=== PATIENT | male | born 1955 | race Caucasian/White ===

== ENCOUNTER 2022-04-01 13:39 | Inpatient (IN) ==
[2022-04-01] MEDS ORDERED: Etomidate 20 mg/10 ml 2 MG/ML 10 ml VIAL IV ONE (13:47)
[2022-04-01] MEDS ORDERED: Succinylcholine 200 mg VIAL 20 mg/ml 10 ml VIAL (200 mg) IV ONE (13:47)
[2022-04-01 13:53] LABS: Hematocrit 47 % (42-52); Hemoglobin 15.1 g/dL (14.0-18.0); Mean Corpuscular HGB Conc 33 g/dL (31-36); Mean Corpuscular Hemoglobin 32 pg (27-31); Mean Corpuscular Volume 98 fL (80-94); Mean Platelet Volume 8.7 fL (7.4-10.4); Platelet Count 201 10^3/uL (150-450); Red Blood Count 4.74 10^6 /uL (4.18-5.48); Red Cell Distribution Width 14 % (10-15)
[2022-04-01] MEDS: Propofol 10 mg/ml 100 ML BTL 100 ML IV SCH ×4 (13:54→22:54)
[2022-04-01 13:59] LABS: INR 1.04 (0.89-1.11)
[2022-04-01 14:11] LABS: PCO2 Arterial 64 mmHg (35-45); PO2 Arterial 74 mmHg (80-100)
[2022-04-01 14:20] LABS: High Sens Troponin Baseline 44 pg/mL (<20)
[2022-04-01] MEDS ORDERED: Iodixanol (CONTRAST) 320 MG/ML 100 ML SDV IV ONE (14:35)
[2022-04-01 14:37] LABS: ALT 288 U/L (7-52); Albumin 4.2 g/dL (3.2-5.2); Albumin/Globulin Ratio 1.7 (1-3); Alkaline Phosphatase 77 U/L (35-149); Blood Urea Nitrogen 16 mg/dL (6-24); CO2 Carbon Dioxide 21 mmol/L (22-32); Calcium 9.8 mg/dL (8.6-10.3); Chloride 102 mmol/L (101-111); Creatine Kinase 355 U/L (10-223); Globulin 2.5 g/dL (2-4); Glucose 241 mg/dL (70-100); Magnesium 2.2 mg/dL (1.9-2.7); Sodium 137 mmol/L (135-145); Total Protein 6.7 g/dL (6.4-8.9); eGFR CKD-EPI 79.6 (>60)
[2022-04-01 14:40] LABS: Anion Gap 14 mmol/L (2-11)
[2022-04-01] MEDS ORDERED: Lactated Ringers 1000 ml BAG 1,000 ML IV ONE ×3 (14:43→15:26)
[2022-04-01 14:48] LABS: TSH Ultra Thyroid Stim Horm 7.68 mcIU/mL (0.34-5.60)
[2022-04-01] MEDS ORDERED: Midazolam 5 mg/5 ml VIAL 1 mg/ml 5 ml VIAL (5 mg) IV SLOW PU ONE (14:55)
[2022-04-01] MEDS ORDERED: Midazolam 5 mg/5 ml VIAL 1 mg/ml 5 ml VIAL (5 mg) ONE ×2 (14:56→17:34)
[2022-04-01] MEDS ORDERED: fentaNYL INFUSION 50 mcg/mL VL 2,500 MCG/50 ML VIAL IV SCH ×2 (15:00→19:00)
[2022-04-01 15:07] LABS: ABS Basophils 0.1 10^3/ul (0-0.2); ABS Eosinophils 0.4 10^3/ul (0-0.6); ABS Lymphocytes 5.9 10^3/ul (1.0-4.8); ABS Monocytes 0.5 10^3/ul (0-0.8); Eosinophil % 3.4 %; Lymphocyte % 45.5 %; Nucleated Red Blood Cells % 0.2
[2022-04-01] MEDS ORDERED: cefTRIAXone 2 gm/50 mL D5W 2 GM/50 ML BAG IV ONE (15:14)
[2022-04-01] MEDS ORDERED: Azithromycin 500 mg/250 ml NS 500 MG/250 ML BAG IVPB ONE (15:15)
[2022-04-01] MEDS ORDERED: Norepinephrine 16MCG/ML BAG NS 4,000 MCG/250 ML BAG IV ONE (15:28)
[2022-04-01] MEDS ORDERED: Norepinephrine 16MCG/ML BAG NS 4,000 MCG/250 ML BAG IV SCH (16:00)
[2022-04-01] MEDS ORDERED: fentaNYL 100 mcg/2 ml 50 MCG/ML VIAL IV SLOW PU PRN ×2 (16:16→17:36)
[2022-04-01 16:17] LABS: High Sensitivity Troponin 1 Hr 660 pg/mL (<20)
[2022-04-01] MEDS ORDERED: fentaNYL 100 mcg/2 ml 50 MCG/ML VIAL ONE ×3 (16:19→17:34)
[2022-04-01] MEDS ORDERED: Rocuronium 50 mg VIAL 10 mg/ml 5 ml VIAL (50 mg) ONE (16:58)
[2022-04-01] MEDS ORDERED: Propofol 10 mg/ml 100 ML BTL 0 ML ONE (16:58)
[2022-04-01] MEDS ORDERED: Iohexol 350 (CONTRAST) 100 ML PAK IV ONE (17:34)
[2022-04-01] MEDS ORDERED: nitroGLYCERIN DRIP 25,000 MCG/250 ML BTL ONE (17:34)
[2022-04-01] MEDS ORDERED: Lidocaine 1% MPF 5 ML VIAL ONE (17:34)
[2022-04-01] MEDS ORDERED: Heparin 1,000 UNIT/ML 10 ml (10,000 UNITS) CATHLAB/DIALYSIS ONE (17:34)
[2022-04-01] MEDS ORDERED: Heparin 2 UNITS/ML 1000 mls 2,000 ML IV ONE (17:34)
[2022-04-01] MEDS ORDERED: niCARdipine 0.1MG/ML IVPREMIX 20 MG/200 ML BAG IV ONE (17:35)
[2022-04-01] MEDS ORDERED: Norepinephrine 16MCG/ML BAGD5W 4,000 MCG/250 ML BAG IV ONE (17:54)
[2022-04-01] MEDS ORDERED: Midazolam 2 mg/2 ml VIAL 1 mg/ml 2 ml VIAL (2 mg) ONE (18:20)
[2022-04-01 18:22] LABS: Body Fluid Source Broncheoalveolar lav
[2022-04-01] MEDS: fentaNYL 100 mcg/2 ml 50 MCG/ML VIAL IV SLOW PU ONE (18:25)
[2022-04-01] MEDS ORDERED: Midazolam 2 mg/2 ml VIAL 1 mg/ml 2 ml VIAL (2 mg) IV SLOW PU ONE (18:28)
[2022-04-01 18:40] LABS: Potassium Redraw 3.3 mmol/L (3.5-5.0)
[2022-04-01 18:43] LABS: Blood Urea Nitrogen 20 mg/dL (6-24); CO2 Carbon Dioxide 22 mmol/L (22-32); Calcium 9.3 mg/dL (8.6-10.3); Chloride 105 mmol/L (101-111); Glucose 154 mg/dL (70-100); Sodium 138 mmol/L (135-145); eGFR CKD-EPI 81.5 (>60)
[2022-04-01 18:49] LABS: Anion Gap 11 mmol/L (2-11)
[2022-04-01] MEDS ORDERED: fentaNYL 100 mcg/2 ml 50 MCG/ML VIAL IV SLOW PU ONE (20:10)
[2022-04-01] MEDS: NS 0.9% 1000 ml BAG 1,000 ML IV SCH (20:32)
[2022-04-01 20:38] LABS: Body Fluid Appearance Bloody; Body Fluid Color Red
[2022-04-01 22:04] LABS: PCO2 Arterial 56 mmHg (35-45); PO2 Arterial 125 mmHg (80-100)
[2022-04-01] MEDS: Mometasone/Formoter 200/5 MDI INH SCH (22:04)
[2022-04-01] MEDS: Chlorhexidine MOUTHWASH 0.12% 15 ML UDC TOPICAL SCH ×2 (22:33→23:07)
[2022-04-01] MEDS: Enoxaparin 40 MG/0.4 ML SYR SUBCUT SCH (22:39)
[2022-04-01] MEDS: Pantoprazole VIAL 40 MG VIAL IV SCH (22:40)
[2022-04-01 22:43] LABS: Urine Benzodiazepine Screen Presumptive Positive (None Detect); Urine Cannabinoids Screen None Detected (None Detect); Urine Opiates Screen None Detected (None Detect)
[2022-04-01] MEDS ORDERED: Acetaminophen IV 1 GM/100ML 1,000 MG/100 ML BAG IV ONE (22:53)
[2022-04-01] MEDS: Acetaminophen IV 1 GM/100ML 1,000 MG/100 ML BAG IV PRN (22:56)
[2022-04-01 23:21] LABS: Urine Appearance Clear; Urine Bilirubin Negative (Negative); Urine Blood Negative (Negative); Urine Color Yellow; Urine Glucose Negative (Negative); Urine Ketones Negative (Negative); Urine Nitrite Negative (Negative); Urine Protein 1+(30 mg/dL) (Negative); Urine Urobilinogen Negative (Negative)
[2022-04-01 23:24] LABS: Urine Specific Gravity > 1.060 (1.002-1.030)
[2022-04-01] MEDS: KCL 20 MEQ/100 ML IVPREMIX 20 MEQ/100 ML BAG IV SCH (23:59)
[2022-04-02 00:03] LABS: Urine Squamous Epithelial Cell Present (Absent)
[2022-04-02] MEDS: Norepinephrine 16MCG/ML BAGD5W 4,000 MCG/250 ML BAG IV SCH ×3 (00:04→11:57)
[2022-04-02] MEDS: Chlorhexidine MOUTHWASH 0.12% 15 ML UDC TOPICAL SCH ×6 (01:16→22:50)
[2022-04-02] MEDS: Propofol 10 mg/ml 100 ML BTL 100 ML IV SCH ×7 (01:19→21:44)
[2022-04-02] MEDS ORDERED: LORazepam 2 mg VIAL 1 ml IV PUSH ONE (01:26)
[2022-04-02] MEDS ORDERED: Lorazepam PYXIS KEY PRN (01:26)
[2022-04-02] MEDS: KCL 20 MEQ/100 ML IVPREMIX 20 MEQ/100 ML BAG IV SCH (02:27)
[2022-04-02 04:06] LABS: Body Fluid Other Cells 178; Body Fluid Total Cells Counted 300
[2022-04-02 06:04] LABS: Hematocrit 40 % (42-52); Hemoglobin 12.8 g/dL (14.0-18.0); Mean Corpuscular HGB Conc 32 g/dL (31-36); Mean Corpuscular Hemoglobin 31 pg (27-31); Mean Corpuscular Volume 97 fL (80-94); Mean Platelet Volume 8.5 fL (7.4-10.4); Platelet Count 183 10^3/uL (150-450); Red Cell Distribution Width 14 % (10-15); White Blood Count 19.2 10^3/uL (3.5-10.8)
[2022-04-02 06:42] LABS: ABS Lymphocytes 1.1 10^3/ul (1.0-4.8); ABS Monocytes 1.8 10^3/ul (0-0.8); ABS Neutrophils 16.2 10^3/ul (1.5-7.7); Eosinophil % 0.1 %; Lymphocyte % 5.9 %
[2022-04-02 06:45] LABS: Calcium 8.3 mg/dL (8.6-10.3); Magnesium 1.7 mg/dL (1.9-2.7); Phosphorus 3.9 mg/dL (2.5-5.0); Potassium 4.4 mmol/L (3.5-5.0); eGFR CKD-EPI 98.9 (>60)
[2022-04-02] MEDS: NS 0.9% 1000 ml BAG 1,000 ML IV SCH ×2 (07:09→20:35)
[2022-04-02] MEDS: Pantoprazole VIAL 40 MG VIAL IV SCH (07:09)
[2022-04-02] MEDS ORDERED: Magnesium Sulfate 2 gm BAG 2 GM/50 ML BAG IVPB ONE (08:00)
[2022-04-02] MEDS: Mometasone/Formoter 200/5 MDI INH SCH ×2 (08:29→19:02)
[2022-04-02 08:36] LABS: PCO2 Arterial 37 mmHg (35-45); PO2 Arterial 127 mmHg (80-100)
[2022-04-02 08:38] LABS: Albumin 3.6 g/dL (3.2-5.2); Albumin/Globulin Ratio 1.7 (1-3); Direct Bilirubin 0.1 mg/dL (0.03-0.18); Globulin 2.1 g/dL (2-4); Indirect Bilirubin 0.4 mg/dL (0.3-1.0); Total Bilirubin 0.5 mg/dL (0.2-1.0); Total Protein 5.7 g/dL (6.4-8.9)
[2022-04-02 08:43] LABS: INR 1.23 (0.89-1.11)
[2022-04-02 10:23] LABS: Erythrocyte Sed Rate 8 mm/Hr (0-19)
[2022-04-02] MEDS: Doxycycline 100 MG in NS 0.9% 250 ML BAG IVPB SCH ×2 (11:56→22:50)
[2022-04-02] MEDS: Acetaminophen IV 1 GM/100ML 1,000 MG/100 ML BAG IV PRN (12:07)
[2022-04-02] MEDS: cefTRIAXone 1 gm/50 mL D5W 1 GM/50 ML BAG IV SCH (14:12)
[2022-04-02] MEDS ORDERED: Azithromycin 500 mg/250 ml NS 500 MG/250 ML BAG IVPB SCH (15:00)
[2022-04-02] MEDS: Enoxaparin 40 MG/0.4 ML SYR SUBCUT SCH (17:37)
[2022-04-02 18:57] LABS: HDL Cholesterol 30.6 mg/dL
[2022-04-03] MEDS: Propofol 10 mg/ml 100 ML BTL 100 ML IV SCH ×6 (00:40→17:44)
[2022-04-03] MEDS: Chlorhexidine MOUTHWASH 0.12% 15 ML UDC TOPICAL SCH ×7 (00:40→19:59)
[2022-04-03 06:25] LABS: INR 1.35 (0.89-1.11)
[2022-04-03] MEDS: Mometasone/Formoter 200/5 MDI INH SCH ×2 (06:42→19:48)
[2022-04-03 06:43] LABS: Albumin/Globulin Ratio 1.5 (1-3); Calcium 8.1 mg/dL (8.6-10.3); Magnesium 2.1 mg/dL (1.9-2.7); Phosphorus 2.1 mg/dL (2.5-5.0); Potassium 3.7 mmol/L (3.5-5.0); Total Bilirubin 0.5 mg/dL (0.2-1.0); eGFR CKD-EPI 109.8 (>60)
[2022-04-03] MEDS: NS 0.9% 1000 ml BAG 1,000 ML IV SCH ×2 (09:19→23:11)
[2022-04-03] MEDS: Pantoprazole VIAL 40 MG VIAL IV SCH (09:45)
[2022-04-03] MEDS: Doxycycline 100 MG in NS 0.9% 250 ML BAG IVPB SCH ×2 (09:45→19:59)
[2022-04-03 10:24] LABS: ABS Basophils 0.1 10^3/ul (0-0.2); ABS Eosinophils 0.1 10^3/ul (0-0.6); ABS Lymphocytes 1.3 10^3/ul (1.0-4.8); ABS Neutrophils 9.5 10^3/ul (1.5-7.7); Eosinophil % 0.6 %; Hematocrit 33 % (42-52); Hemoglobin 10.7 g/dL (14.0-18.0); Mean Corpuscular HGB Conc 33 g/dL (31-36); Mean Corpuscular Hemoglobin 32 pg (27-31); Mean Corpuscular Volume 96 fL (80-94); Mean Platelet Volume 8.9 fL (7.4-10.4); Platelet Count 142 10^3/uL (150-450); Red Blood Count 3.39 10^6 /uL (4.18-5.48); Red Cell Distribution Width 14 % (10-15)
[2022-04-03] MEDS: KCL 20 MEQ/100 ML IVPREMIX 20 MEQ/100 ML BAG IV SCH ×2 (11:24→14:23)
[2022-04-03] MEDS ORDERED: fentaNYL 100 mcg/2 ml 50 MCG/ML VIAL ONE ×2 (12:01→16:22)
[2022-04-03] MEDS ORDERED: fentaNYL 100 mcg/2 ml 50 MCG/ML VIAL IV SLOW PU ONE (12:01)
[2022-04-03] MEDS: Dexmedetomidine 1,000 MCG in NS 0.9% 250 ml 240 ML IV SCH (12:50)
[2022-04-03] MEDS: Norepinephrine 16MCG/ML BAGD5W 4,000 MCG/250 ML BAG IV SCH (14:04)
[2022-04-03] MEDS: cefTRIAXone 1 gm/50 mL D5W 1 GM/50 ML BAG IV SCH (14:45)
[2022-04-03] MEDS: Enoxaparin 40 MG/0.4 ML SYR SUBCUT SCH (15:49)
[2022-04-03] MEDS: fentaNYL 100 mcg/2 ml 50 MCG/ML VIAL IV SLOW PU PRN (16:26)
[2022-04-04] MEDS: Chlorhexidine MOUTHWASH 0.12% 15 ML UDC TOPICAL SCH ×5 (02:18→15:43)
[2022-04-04] MEDS: Dexmedetomidine 1,000 MCG in NS 0.9% 250 ml 240 ML IV SCH (03:33)
[2022-04-04] MEDS: Propofol 10 mg/ml 100 ML BTL 100 ML IV SCH (04:42)
[2022-04-04 04:43] LABS: ABS Eosinophils 0.1 10^3/ul (0-0.6); ABS Lymphocytes 1.4 10^3/ul (1.0-4.8); ABS Monocytes 0.8 10^3/ul (0-0.8); ABS Neutrophils 7.2 10^3/ul (1.5-7.7); Eosinophil % 1.3 %; Hematocrit 31 % (42-52); Lymphocyte % 14.4 %; Mean Corpuscular HGB Conc 32 g/dL (31-36); Mean Corpuscular Hemoglobin 31 pg (27-31); Mean Corpuscular Volume 96 fL (80-94); Mean Platelet Volume 8.8 fL (7.4-10.4); PCO2 Arterial 34 mmHg (35-45); PO2 Arterial 88 mmHg (80-100); Platelet Count 132 10^3/uL (150-450); Red Blood Count 3.21 10^6 /uL (4.18-5.48); Red Cell Distribution Width 14 % (10-15); White Blood Count 9.6 10^3/uL (3.5-10.8)
[2022-04-04] MEDS: fentaNYL 100 mcg/2 ml 50 MCG/ML VIAL IV SLOW PU PRN (05:05)
[2022-04-04 05:08] LABS: C Reactive Protein 195.68 mg/L (<8.01); Calcium 8.2 mg/dL (8.6-10.3); Magnesium 2.1 mg/dL (1.9-2.7); Potassium 4.2 mmol/L (3.5-5.0); eGFR CKD-EPI 106.3 (>60)
[2022-04-04] MEDS: Mometasone/Formoter 200/5 MDI INH SCH ×2 (08:02→19:21)
[2022-04-04] MEDS: Doxycycline 100 MG in NS 0.9% 250 ML BAG IVPB SCH ×2 (09:45→19:54)
[2022-04-04] MEDS ORDERED: Furosemide 40 mg/4 ml IV VIAL IV SLOW PU ONE (10:18)
[2022-04-04] MEDS ORDERED: Furosemide 40 mg/4 ml IV VIAL ONE (10:18)
[2022-04-04] MEDS: Pantoprazole VIAL 40 MG VIAL IV SCH (10:25)
[2022-04-04] MEDS: Albuterol/Ipratropium NEB.SOL (2.5/0.5 MG) 3 ML NEB.SOLN INH PRN ×4 (10:32→20:46)
[2022-04-04] MEDS: Acetaminophen IV 1 GM/100ML 1,000 MG/100 ML BAG IV PRN ×2 (11:04→22:59)
[2022-04-04] MEDS: cefTRIAXone 1 gm/50 mL D5W 1 GM/50 ML BAG IV SCH (15:08)
[2022-04-04] MEDS ORDERED: Morphine 2 MG/ML SYRINGE IV ONE (17:15)
[2022-04-04] MEDS: Enoxaparin 40 MG/0.4 ML SYR SUBCUT SCH (17:18)
[2022-04-05] MEDS: fentaNYL 100 mcg/2 ml 50 MCG/ML VIAL IV SLOW PU PRN ×2 (01:37→05:28)
[2022-04-05 04:41] LABS: Hematocrit 32 % (42-52); Hemoglobin 10.6 g/dL (14.0-18.0); Mean Corpuscular HGB Conc 33 g/dL (31-36); Mean Corpuscular Hemoglobin 32 pg (27-31); Mean Corpuscular Volume 96 fL (80-94); Mean Platelet Volume 8.5 fL (7.4-10.4); Platelet Count 172 10^3/uL (150-450); Red Blood Count 3.35 10^6 /uL (4.18-5.48); Red Cell Distribution Width 14 % (10-15); White Blood Count 10.5 10^3/uL (3.5-10.8)
[2022-04-05 04:57] LABS: ABS Basophils 0.1 10^3/ul (0-0.2); ABS Eosinophils 0.1 10^3/ul (0-0.6); ABS Lymphocytes 1.1 10^3/ul (1.0-4.8); ABS Monocytes 1.1 10^3/ul (0-0.8); Eosinophil % 1.3 %; Lymphocyte % 10.6 %
[2022-04-05 05:08] LABS: Albumin 3.2 g/dL (3.2-5.2); Albumin/Globulin Ratio 1.5 (1-3); Calcium 8.7 mg/dL (8.6-10.3); Globulin 2.2 g/dL (2-4); Magnesium 2.1 mg/dL (1.9-2.7); Potassium 3.8 mmol/L (3.5-5.0); Total Bilirubin 0.7 mg/dL (0.2-1.0); Total Protein 5.4 g/dL (6.4-8.9); eGFR CKD-EPI 107.5 (>60)
[2022-04-05] MEDS: Doxycycline 100 MG in NS 0.9% 250 ML BAG IVPB SCH ×3 (08:03→20:10)
[2022-04-05] MEDS: Pantoprazole VIAL 40 MG VIAL IV SCH ×2 (08:03→08:17)
[2022-04-05] MEDS: Mometasone/Formoter 200/5 MDI INH SCH ×2 (08:34→19:22)
[2022-04-05] MEDS ORDERED: Furosemide 40 mg/4 ml IV VIAL IV ONE (08:37)
[2022-04-05] MEDS ORDERED: Potassium Chlor 20 meq TAB.ER PO ONE (08:38)
[2022-04-05] MEDS: Lidocaine PATCH 5% PATCH TRANSDERM SCH (08:40)
[2022-04-05] MEDS: Enoxaparin 40 MG/0.4 ML SYR SUBCUT SCH (15:06)
[2022-04-05] MEDS: cefTRIAXone 1 gm/50 mL D5W 1 GM/50 ML BAG IV SCH (15:06)
[2022-04-05] MEDS: Albuterol/Ipratropium NEB.SOL (2.5/0.5 MG) 3 ML NEB.SOLN INH PRN ×3 (15:08→23:12)
[2022-04-06] MEDS: Albuterol/Ipratropium NEB.SOL (2.5/0.5 MG) 3 ML NEB.SOLN INH PRN (05:25)
[2022-04-06 06:28] LABS: Hematocrit 34 % (42-52); Hemoglobin 11.3 g/dL (14.0-18.0); Mean Corpuscular HGB Conc 33 g/dL (31-36); Mean Corpuscular Hemoglobin 32 pg (27-31); Mean Corpuscular Volume 96 fL (80-94); Mean Platelet Volume 8.8 fL (7.4-10.4); Platelet Count 194 10^3/uL (150-450); Red Blood Count 3.55 10^6 /uL (4.18-5.48); Red Cell Distribution Width 14 % (10-15); White Blood Count 7.8 10^3/uL (3.5-10.8)
[2022-04-06 06:44] LABS: ABS Basophils 0.1 10^3/ul (0-0.2); ABS Eosinophils 0.4 10^3/ul (0-0.6); ABS Lymphocytes 1.4 10^3/ul (1.0-4.8); ABS Monocytes 1.2 10^3/ul (0-0.8); ABS Neutrophils 4.8 10^3/ul (1.5-7.7); Eosinophil % 4.8 %; Lymphocyte % 17.6 %
[2022-04-06 06:54] LABS: Albumin 3.2 g/dL (3.2-5.2); Albumin/Globulin Ratio 1.4 (1-3); Calcium 9.1 mg/dL (8.6-10.3); Globulin 2.3 g/dL (2-4); Magnesium 1.9 mg/dL (1.9-2.7); Potassium 3.7 mmol/L (3.5-5.0); Total Bilirubin 0.7 mg/dL (0.2-1.0); Total Protein 5.5 g/dL (6.4-8.9); eGFR CKD-EPI 110.5 (>60)
[2022-04-06] MEDS ORDERED: Levalbuterol 0.63MG/3ML NEB UNIT OF USE INH PRN (08:42)
[2022-04-06] MEDS: Doxycycline 100 MG in NS 0.9% 250 ML BAG IVPB SCH ×2 (10:20→21:26)
[2022-04-06] MEDS ORDERED: Potassium Chlor 20 meq TAB.ER PO ONE (10:30)
[2022-04-06] MEDS: Mometasone/Formoter 200/5 MDI INH SCH ×2 (10:33→19:00)
[2022-04-06] MEDS: Lidocaine PATCH 5% PATCH TRANSDERM SCH (10:37)
[2022-04-06] MEDS ORDERED: Lidocaine PATCH 5% PATCH TRANSDERM ONE (11:00)
[2022-04-06] MEDS: Aspirin EC 81 mg TAB.EC (enteric coated) PO SCH (11:11)
[2022-04-06] MEDS: Levalbuterol HFA INHALER MDI INH PRN ×2 (14:18→19:00)
[2022-04-06 14:50] LABS: TSH Ultra Thyroid Stim Horm 6.82 mcIU/mL (0.34-5.60)
[2022-04-06 14:54] LABS: Free T4 1.18 ng/dL (0.61-1.12)
[2022-04-06 15:32] LABS: C Reactive Protein 99.36 mg/L (<8.01)
[2022-04-06] MEDS: Enoxaparin 40 MG/0.4 ML SYR SUBCUT SCH (16:38)
[2022-04-06] MEDS: cefTRIAXone 1 gm/50 mL D5W 1 GM/50 ML BAG IV SCH (16:38)
[2022-04-07 05:14] LABS: Hematocrit 35 % (42-52); Hemoglobin 11.6 g/dL (14.0-18.0); Mean Corpuscular HGB Conc 33 g/dL (31-36); Mean Corpuscular Hemoglobin 32 pg (27-31); Mean Corpuscular Volume 96 fL (80-94); Mean Platelet Volume 8.3 fL (7.4-10.4); Platelet Count 213 10^3/uL (150-450); Red Blood Count 3.66 10^6 /uL (4.18-5.48); Red Cell Distribution Width 14 % (10-15); White Blood Count 8.5 10^3/uL (3.5-10.8)
[2022-04-07 05:38] LABS: Albumin 3.3 g/dL (3.2-5.2); Albumin/Globulin Ratio 1.4 (1-3); Calcium 9.4 mg/dL (8.6-10.3); Globulin 2.3 g/dL (2-4); Magnesium 2.1 mg/dL (1.9-2.7); Potassium 4.1 mmol/L (3.5-5.0); Total Bilirubin 0.6 mg/dL (0.2-1.0); Total Protein 5.6 g/dL (6.4-8.9); eGFR CKD-EPI 112.5 (>60)
[2022-04-07] MEDS: Mometasone/Formoter 200/5 MDI INH SCH ×2 (06:55→19:07)
[2022-04-07] MEDS: Doxycycline 100 MG in NS 0.9% 250 ML BAG IVPB SCH (08:18)
[2022-04-07] MEDS: Aspirin EC 81 mg TAB.EC (enteric coated) PO SCH (08:20)
[2022-04-07] MEDS: Lidocaine PATCH 5% PATCH TRANSDERM SCH (08:21)
[2022-04-07 09:16] LABS: ABS Basophils 0.1 10^3/ul (0-0.2); ABS Eosinophils 0.4 10^3/ul (0-0.6); ABS Lymphocytes 1.3 10^3/ul (1.0-4.8); ABS Monocytes 1.2 10^3/ul (0-0.8); ABS Neutrophils 5.7 10^3/ul (1.5-7.7); Eosinophil % 4.4 %; Lymphocyte % 14.8 %
[2022-04-07] MEDS: Enoxaparin 40 MG/0.4 ML SYR SUBCUT SCH (15:38)
[2022-04-07] MEDS: cefTRIAXone 1 gm/50 mL D5W 1 GM/50 ML BAG IV SCH (15:39)
[2022-04-08 06:07] LABS: Hematocrit 34 % (42-52); Hemoglobin 11.3 g/dL (14.0-18.0); Mean Corpuscular HGB Conc 34 g/dL (31-36); Mean Corpuscular Hemoglobin 32 pg (27-31); Mean Corpuscular Volume 97 fL (80-94); Mean Platelet Volume 8.5 fL (7.4-10.4); Platelet Count 222 10^3/uL (150-450); Red Blood Count 3.49 10^6 /uL (4.18-5.48); Red Cell Distribution Width 14 % (10-15); White Blood Count 8.9 10^3/uL (3.5-10.8)
[2022-04-08 06:08] LABS: ABS Basophils 0.1 10^3/ul (0-0.2); ABS Eosinophils 0.4 10^3/ul (0-0.6); ABS Lymphocytes 1.3 10^3/ul (1.0-4.8); ABS Monocytes 1.2 10^3/ul (0-0.8); ABS Neutrophils 5.9 10^3/ul (1.5-7.7); Eosinophil % 4.9 %; Lymphocyte % 14.2 %
[2022-04-08 06:47] LABS: Calcium 9.2 mg/dL (8.6-10.3); Magnesium 2.1 mg/dL (1.9-2.7); eGFR CKD-EPI 113.2 (>60)
[2022-04-08] MEDS: Mometasone/Formoter 200/5 MDI INH SCH ×3 (07:01→22:23)
[2022-04-08] MEDS: Lidocaine PATCH 5% PATCH TRANSDERM SCH (08:28)
[2022-04-08] MEDS: Aspirin EC 81 mg TAB.EC (enteric coated) PO SCH (08:30)
[2022-04-08] MEDS ORDERED: Furosemide 40 mg/4 ml IV VIAL IV ONE (11:41)
[2022-04-08 16:54] LABS: Albumin 3.6 g/dL (3.2-5.2); Albumin/Globulin Ratio 1.5 (1-3); Calcium 9.5 mg/dL (8.6-10.3); Globulin 2.4 g/dL (2-4); Potassium 4.1 mmol/L (3.5-5.0); Total Bilirubin 0.5 mg/dL (0.2-1.0); eGFR CKD-EPI 107.5 (>60)
[2022-04-09] MEDS: Levalbuterol HFA INHALER MDI INH PRN (05:28)
[2022-04-09 07:12] LABS: Hematocrit 34 % (42-52); Hemoglobin 11.6 g/dL (14.0-18.0); Mean Corpuscular HGB Conc 34 g/dL (31-36); Mean Corpuscular Hemoglobin 33 pg (27-31); Mean Corpuscular Volume 97 fL (80-94); Mean Platelet Volume 8.8 fL (7.4-10.4); Platelet Count 253 10^3/uL (150-450); Red Blood Count 3.52 10^6 /uL (4.18-5.48); Red Cell Distribution Width 14 % (10-15); White Blood Count 7.6 10^3/uL (3.5-10.8)
[2022-04-09] MEDS: Mometasone/Formoter 200/5 MDI INH SCH ×2 (07:16→20:06)
[2022-04-09 08:47] LABS: ABS Basophils 0.1 10^3/ul (0-0.2); ABS Eosinophils 0.4 10^3/ul (0-0.6); ABS Lymphocytes 1.3 10^3/ul (1.0-4.8); ABS Neutrophils 4.8 10^3/ul (1.5-7.7); Eosinophil % 5.5 %; Lymphocyte % 16.6 %
[2022-04-09] MEDS: Lidocaine PATCH 5% PATCH TRANSDERM SCH (10:54)
[2022-04-10] MEDS: Mometasone/Formoter 200/5 MDI INH SCH ×2 (07:06→20:58)
[2022-04-10 07:23] LABS: Hematocrit 36 % (42-52); Hemoglobin 11.9 g/dL (14.0-18.0); Mean Corpuscular HGB Conc 34 g/dL (31-36); Mean Corpuscular Hemoglobin 32 pg (27-31); Mean Corpuscular Volume 97 fL (80-94); Mean Platelet Volume 8.3 fL (7.4-10.4); Platelet Count 293 10^3/uL (150-450); Red Blood Count 3.67 10^6 /uL (4.18-5.48); Red Cell Distribution Width 14 % (10-15); White Blood Count 7.1 10^3/uL (3.5-10.8)
[2022-04-10 07:42] LABS: Calcium 9.2 mg/dL (8.6-10.3); Potassium 4.1 mmol/L (3.5-5.0); eGFR CKD-EPI 110.5 (>60)
[2022-04-10] MEDS: Lidocaine PATCH 5% PATCH TRANSDERM SCH (07:59)
[2022-04-10 08:28] LABS: ABS Basophils 0.1 10^3/ul (0-0.2); ABS Eosinophils 0.4 10^3/ul (0-0.6); ABS Lymphocytes 1.3 10^3/ul (1.0-4.8); ABS Monocytes 0.9 10^3/ul (0-0.8); ABS Neutrophils 4.3 10^3/ul (1.5-7.7); Eosinophil % 6.3 %; Lymphocyte % 18.8 %
[2022-04-10 15:29] LABS: C Reactive Protein 14.46 mg/L (<8.01)
[2022-04-11] MEDS: Mometasone/Formoter 200/5 MDI INH SCH (07:31)
[2022-04-11] MEDS: Lidocaine PATCH 5% PATCH TRANSDERM SCH (09:12)
[2022-04-11] MEDS ORDERED: Bumetanide IV 0.25 MG/ML 4 ml VIAL (1 mg) SLOW PUSH ONE (10:41)
[2022-04-11 17:53] VITALS: BP 150/69
== END 2022-04-11 13:35 | disposition home or self-care (01) | DRG 252 ==
LOC: ED 13:39 → SUATTDRO 15:29 → EDHOLD 15:29 → ICU 17:10 → MEDTELE 04-08 15:36
PROVIDERS: ADMIT Internal Medicine; ATTEND Hospitalist